=== PATIENT | male | born 2000 | race Caucasian/White ===

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

== ENCOUNTER 2021-01-05 18:26 | Emergency (ER) | payer OTHER, MEDICAID, SELFPAY ==
[2021-01-05 18:32] VITALS: PULSE 60; RESP 18; TEMP 37; O2SAT 96
--- NOTE | 2021-01-05 18:34 | DI.RAD.S_ITS ---
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 COMPARISON: None. FINDINGS: Bones: No fractures or dislocations. No suspicious bony lesions. Soft tissues: Soft tissue swelling and laceration at the tip of the index finger. IMPRESSION: Soft tissue injury at the tip of the index finger. No fracture Dictated by: Pawel Diane M.D. on 01/05/2021 at 19:06 Approved by: Pawel Diane M.D. on 01/05/2021 at 19:07
--- NOTE | 2021-01-05 20:07 | ED.WOUNDLAC ---
HPI - Wound/Laceration General Chief Complaint: Wound/Laceration Stated Complaint: Laceration to Rt Pointer Finger Time Seen by Provider: 01/05/21 20:06 Source: patient Mode of arrival: Ambulatory History of Present Illness HPI narrative: Patient is a 20-year-old male who presents with right index finger injury with a saw. 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 Was irrigated after the injury Neosporin was placed and he was brought to the ED by his dad for further evaluation. He has no numbness tingling or weakness. Related Data Previous Rx's Medication Instructions Recorded ondansetron 4 mg disintegrating 4 mg SUBLINGUAL Q6HP PRN #15 odt 04/09/16 tablet (Zofran ODT) cephalexin 500 mg capsule 500 mg PO BID 7 Days #14 cap 01/05/21 Review of Systems Review of Systems Narrative: GENERAL: Denies chills,fever HEENT: Denies throat pain RESPIRATORY: Denies dyspnea, cough, wheezing CARDIOVASCULAR: Denies chest pain, palpitations GASTROINTESTINAL: Denies nausea, vomiting MUSCULOSKELETAL: Denies extremity pain, injury SKIN: See HPI NEUROLOGIC: Denies weakness, dizziness, headache, numbness 8 point review of systems is negative except for those stated above and HPI Exam Initial Vital Signs Initial Vital Signs: Vital Signs Temperature 98.6 F 01/05/21 18:32 Pulse Rate 60 01/05/21 18:32 Respiratory Rate 18 01/05/21 18:32 Pulse Oximetry 96 01/05/21 18:32 GENERAL: Well-appearing, well-nourished and in no acute distress. CARDIOVASCULAR: peripheral pulses in tact, cap refill <2 sec RESPIRATORY: No respiratory distress, speaks in full sentences without difficulty EXTREMITIES: Normal range of motion, no clubbing or edema. Neurovascularly intact NEUROLOGICAL: Cranial nerves II through XII grossly intact. Normal gait and speech. SKIN: Right index finger laceration avulsion noted no nail bed injury Skin Fingers-Fingertip Front: 1. No good skin approximation at the distal tip but some skin approximation more proximal. Totaling 3 cm. Procedures Laceration Repair Laceration 1: Size (cm): 3 Local Anesthetic: lidocaine 1% Pre-repair: wound explored, irrigated extensively and deep structures intact Skin layer closed with: nylon Number of sutures: 1 Nerve Block Nerve Block 1: Amount of anesthesia used (mL): 2 Side: right Nerve Blocks: digital Procedure Successful: Yes Patient Tolerated Procedure: Well Course Orders Ordered: ED Orders 01/05/21 18:34 XR finger RT min 2V Stat Discontinued Medications Cephalexin HCl (Cephalexin 250 Mg Capsule) 500 mg PO NOW ONE Stop: 01/05/21 21:45 Last Admin: 01/05/21 22:00 Dose: 500 mg Documented by: KAMILAH Lidocaine HCl (Lidocaine 1% (Pf)) 2 ml SUBCUT NOW ONE Stop: 01/05/21 20:30 Last Admin: 01/05/21 20:36 Dose: 2 ml Documented by: KAMILAH Vital Signs Vital signs: Vital Signs - 8 hr 01/05/21 18:32 Temperature 98.6 F Pulse Rate 60 Respiratory Rate 18 Pulse Oximetry 96 [facility] - Wound/Laceration Imaging Data Extremity x-ray #1: Radiologist's Impression: PROCEDURE:? XR FINGER RT MIN 2V ? INDICATIONS:? 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 TECHNIQUE:? AP hand, 2 views of the right finger(s) acquired.? ? COMPARISON:? None. ? FINDINGS:? ? Bones:? No fractures or dislocations.? No suspicious bony lesions.? ? Soft tissues:? Soft tissue swelling and laceration at the tip of the index finger. ? IMPRESSION:? Soft tissue injury at the tip of the index finger.? No fracture ? ? Dictated by: Pawel Diane M.D. on 01/05/2021 at 19:06 ? [facility] Narrative Medical decision making narrative: Patient definitely has avulsion laceration some good skin approximation mostly not. Did happen with a chain saw will put him on antibiotic. Discharge Plan Departure Patient Disposition: Home Clinical Impression: Finger laceration Instructions: DI for Laceration Repair Activity Restrictions/Additional Instructions: *You have been diagnosed with avulsion of right index finger *What to do: Keep dressing on for 12-24 hours. Keep finger clean and dry with soap and water. Elevate. Ice 20-30 minutes at a time. This will likely take a few weeks to heal fully *Continue to take medications as directed Keflex 500 mg twice a day for 7 days Motrin 800 mg every 8 hours if needed for [id number] pain *Follow up with your primary care provider in 2-3 days *Return to ER if you should have increasing redness pain or swelling any new, worsening or concerning symptoms Prescriptions: New cephalexin 500 mg capsule 500 mg PO BID 7 Days Qty: 14 0RF No Action ondansetron [Zofran ODT] 4 MG tablet,disintegrating 4 mg Sublingual Q6HP PRNQty: 15 0RF Referrals: Leighton Hernandez MD [Primary Care Provider] -
[2021-01-05] MEDS: LIDOCAINE 1% (PF) 2 ML SUBCUT (20:36)
[2021-01-05] MEDS: cephALEXin 250 MG CAPSULE 500 MG PO (22:00)
== END 2021-01-05 22:00 | disposition home or self-care (01) ==
PROVIDERS: Emergency Provider Emergency Medicine; PCP Family Medicine
DX: S61.210A Laceration without foreign body of right index finger without damage to nail, initial encounter (principal); W29.3XXA Contact with powered garden and outdoor hand tools and machinery, initial encounter
CPT/HCPCS: 12042; 64450; 73140; 99283; 99284